=== PATIENT | male | born 1955 | race Caucasian/White ===

== ENCOUNTER 2022-11-15 13:42 | Outpatient (OUT) | payer MEDICARE, MEDICAID, SELFPAY ==
--- NOTE | 2022-11-15 13:53 | XR_ITS ---
The [address] [address] Patient Name: JESUSITA ERICKSON MRN: [id number] date: 1955 Sex: M Assigned Patient Location: [facility] Current Patient Location: [facility] Accession/Order Number: [id number] Exam Date: 11/15/2022 14:10 Report Date: 11/15/2022 15:47 At the request of: RAMSEY ARENAS Procedure: XR ribs LT min 3V w CXR1V EXAM: XR ribs LT min 3V w CXR1V HISTORY: Fall COMPARISON: 09/11/2021 TECHNIQUE: Four views of the left ribs. FINDINGS: No rib fracture indentified. The lungs are clear. Cervical fusion hardware is noted in the lower cervical spine. XR/XR ribs LT min 3V w CXR1V IMPRESSION: 1. No acute rib fracture identified. Electronically authenticated by: SHANNA YOUNGBLOOD Date: 11/15/2022 15:47
--- NOTE | 2022-11-15 13:53 | XR_ITS ---
The [address] [address] Patient Name: JESUSITA ERICKSON MRN: [id number] date: 1955 Sex: M Assigned Patient Location: RAD Current Patient Location: RAD Accession/Order Number: [id number] Exam Date: 11/15/2022 14:10 Report Date: 11/15/2022 14:49 At the request of: RAMSEY ARENAS Procedure: XR knee LT 4V PROCEDURE: XR knee LT 4V DATE: 11/15/2022 1:10 PM CDT COMPARISONS: None CLINICAL INDICATION: Fall FINDINGS: There is no evidence of fractures or other acute osseous abnormalities. There is medial fixation plate fixed by screws of the proximal tibia additional horizontal screws are also noted of the most proximal aspect of the tibia There is diffuse bone demineralization. There is moderate tricompartmental spurring. There is marked narrowing of the medial femoral tibial joint space compartment. It appears there is slight irregularity at this joint space There is no evidence of left knee joint effusion. XR/XR knee LT 4V IMPRESSION: Prominent left knee degenerative changes especially the medial compartment Bone demineralization Old postop changes proximal tibia No evidence of left knee joint effusion.. Electronically authenticated by: ILEANA REED Date: 11/15/2022 14:49
== END 2022-11-15 13:43 | disposition home or self-care (01) ==
PROVIDERS: PCP Family Medicine; Visit Provider Family Medicine
DX: M25.562 Pain in left knee (principal); R07.81 Pleurodynia
CPT/HCPCS: 71101; 73564

== ENCOUNTER 2023-07-24 21:22 | Emergency (ER) | payer MEDICARE, MEDICAID, SELFPAY ==
[2023-07-24] VITALS (24 sets, daily range): BP systolic 70–116; BP diastolic 44–94; PULSE 81–92; TEMP 36.4–36.6; O2SAT 42–100; BMI 28.6
--- NOTE | 2023-07-24 21:33 | ED.GENADUL1 ---
HPI HPI - General Adult General Chief complaint: Weakness Stated complaint: SYNCOPY Time Seen by Provider: 07/24/23 21:25 Source: patient Mode of arrival: ambulance Limitations: no limitations History of Present Illness HPI narrative: past history of COPD, DM, CAD s/p stent placement. States he was at [facility] past 1-2 months for GI bleed. Required blood transfusion. Described EGD with findings of an ulcer. states he was placed on medication for his stomach. Did have a follow up appointment scheduled but missed the appointment. Now presents ill again for past 2-3 days with chest pain, near syncope and states today black stools again. Also feels short of breath. Also has abdominal pain Related Data Home Medications ?Medication ?Instructions ?Recorded ?Confirmed albuterol sulfate 90 mcg/actuation 2 inh inhalation Q4H PRN shortness 07/24/23 07/24/23 aerosol inhaler of breath or wheezing amlodipine 5 mg tablet 5 mg PO DAILY 07/24/23 07/24/23 atorvastatin 40 mg tablet 40 mg PO DAILY 07/24/23 07/24/23 carvedilol 25 mg tablet 25 mg PO DAILY 07/24/23 07/24/23 gabapentin 300 mg capsule 300 mg PO BEDTIME 07/24/23 07/24/23 hydroxyzine HCl 10 mg tablet 10 mg PO Q6H PRN anxiety 07/24/23 07/24/23 insulin aspart U-100 100 unit/mL 1 sliding scale dose subcut ACHS 07/24/23 07/24/23 (3 mL) subcutaneous pen insulin detemir U-100 100 unit/mL 50 unit subcut .MORNING 07/24/23 07/24/23 (3 mL) subcutaneous pen (Levemir FlexPen) insulin detemir U-100 100 unit/mL 30 unit subcut QPM 07/24/23 07/24/23 (3 mL) subcutaneous pen (Levemir FlexTouch U-100 Insulin) losartan 100 mg tablet 100 mg PO DAILY 07/24/23 07/24/23 metformin 500 mg tablet 500 mg PO DAILY 07/24/23 07/24/23 omeprazole 40 mg capsule,delayed 40 mg PO DAILY 07/24/23 07/24/23 release tizanidine 4 mg tablet 4 mg PO Q12H 07/24/23 07/24/23 Allergies Allergy/AdvReac Type Severity Reaction Status Date / Time hydrocodone Allergy Unknown Verified 07/24/23 21:25 Opioid HPI Opioid Management Most Recent Opioid Data: Last Pain Scale 7 07/24/23 21:53 Review of Systems ROS Status of ROS 10 or more systems reviewed and unremarkable except as noted in history and below Exam Constitutional Vital Signs, click to edit/add: Last Vital Signs Temp 97.7 F 07/25/23 00:15 Pulse 90 07/25/23 00:31 Resp 19 07/25/23 00:31 BP 116/74 07/25/23 00:31 Pulse Ox 96 07/25/23 00:31 O2 Del Method Room Air 07/24/23 22:08 Common normals: no apparent distress, average body habitus, oriented x3, no limitations, healthy appearing, alert and well nourished HENMT Common normals: normocephalic and head/scalp atraumatic Eye Common normals: PERRL, EOMs intact bilaterally and conjunctivae normal Respiratory Common normals: normal respiratory effort, no retractions and no use of accessory muscles Cardio Common normals: regular rate, regular rhythm, S1 normal heart sound and S2 normal heart sound GI Common normals: Normal to inspection, nondistended, normoactive bowel sounds present and soft to palpation Other: RLQ tenderness Extremity Common normals: normal to inspection Neuro Common normals: oriented x3, CN's II-XII intact bilaterally, moves all extremities, no focal motor deficits and no sensory deficits noted Psych Appearance: grossly normal Course Vital Signs Vital signs: Vital Signs Temperature 98 F 07/24/23 21:25 Pulse Rate 89 07/24/23 21:25 Respiratory Rate 28 H 07/24/23 21:25 Blood Pressure 90/44 L 07/24/23 21:25 Pulse Oximetry 100 07/24/23 21:25 Oxygen Delivery Method Room Air 07/24/23 21:25 Temperature 97.7 F 07/25/23 00:15 Pulse Rate 90 07/25/23 00:31 Respiratory Rate 19 07/25/23 00:31 Blood Pressure 116/74 07/25/23 00:31 Pulse Oximetry 96 07/25/23 00:31 Oxygen Delivery Method Room Air 07/24/23 22:08 Medical Decision Making [facility] Narrative Medical decision making narrative: patient presents with GI bleed manifested by tarry stools. Hgb 5.4.. after arrival his bP decreased to 75 systolic. complaint of chest pain and shortness of breath. Near syncope at home. BP improved after hydration. PRBC ordered x2. Also given Protonix IVP. BP improved to 110 systolic and he is feeling better. Discussed with GI Dr Nassar at [facility] and patient accepted in transfer. Also discuses with [facility] Lab Data Labs: Lab Results 07/24/23 07/24/23 07/24/23 Range/Units 21:30 21:49 22:16 WBC 5.7 (4.0-11.0) 10^3/uL RBC 2.19 L (4.70-6.10) 10^6/uL Hgb 5.4 L* (14.0-18.0) g/dL Hct 18.4 L* (42.0-54.0) % MCV 84.0 (80.0-94.0) fL MCH 24.7 L (25.9-34.0) pg MCHC 29.3 L (29.9-35.2) g/dL RDW 18.8 H (11.0-15.0) % Plt Count 118 L (150-450) 10^3/uL MPV 10.1 (9.5-13.5) fL Neut % (Auto) 29.8 L (43.0-75.0) % Lymph % (Auto) 42.1 (20.5-60.0) % [place] % (Auto) 23.3 H (1.7-12.0) % Eos % (Auto) 4.2 (0.9-7.0) % Baso % (Auto) 0.3 (0.2-2.0) % Neut # (Auto) 1.7 (1.4-6.5) 10^3/uL Lymph # (Auto) 2.4 (1.2-3.8) 10^3/uL [place] # (Auto) 1.3 H (0.3-0.8) 10^3/uL Eos # (Auto) 0.2 (0.0-0.7) 10^3/uL Baso # (Auto) 0.0 (0.0-0.1) 10^3/uL Abs Immat Gran (auto) 0.02 (0.00-0.03) 10^3/uL Imm/Tot Granulo (auto) 0.3 (0.0-0.5) % Sodium 133 L (136-145) mmol/L Potassium 4.4 (3.5-5.1) mmol/L Chloride 103 (98-107) mmol/L Carbon Dioxide 21.2 (21.0-32.0) mmol/L Anion Gap 13.2 BUN 26.0 H (7.0-18.0) mg/dL Creatinine 1.62 H (0.70-1.30) mg/dL Est GFR ( Amer) 52 L (>=60) Est GFR (Non-Af Amer) 43 L (>=60) BUN/Creatinine Ratio 16.0 Glucose 313 H (74-106) mg/dL Calcium 7.9 L (8.5-10.1) mg/dL Total Bilirubin 0.3 (0.2-1.0) mg/dL AST 32 (15-37) U/L ALT 26 (16-63) U/L Alkaline Phosphatase 73 (46-116) U/L Troponin I High Sens 37.5 (4.0-76.1) pg/mL Total Protein 6.6 (6.4-8.2) g/dL Albumin 2.3 L (3.4-5.0) g/dL Globulin 4.3 g/dL Albumin/Globulin Ratio 0.5 Lipase 118.0 H (16.0-77.0) U/L POC Glucose 421 H (74-106) mg/dL Blood Type A Negative Antibody Screen Negative Crossmatch See Detail 07/24/23 Range/Units 23:59 WBC (4.0-11.0) 10^3/uL RBC (4.70-6.10) 10^6/uL Hgb (14.0-18.0) g/dL Hct (42.0-54.0) % MCV (80.0-94.0) fL MCH (25.9-34.0) pg MCHC (29.9-35.2) g/dL RDW (11.0-15.0) % Plt Count (150-450) 10^3/uL MPV (9.5-13.5) fL Neut % (Auto) (43.0-75.0) % Lymph % (Auto) (20.5-60.0) % [place] % (Auto) (1.7-12.0) % Eos % (Auto) (0.9-7.0) % Baso % (Auto) (0.2-2.0) % Neut # (Auto) (1.4-6.5) 10^3/uL Lymph # (Auto) (1.2-3.8) 10^3/uL [place] # (Auto) (0.3-0.8) 10^3/uL Eos # (Auto) (0.0-0.7) 10^3/uL Baso # (Auto) (0.0-0.1) 10^3/uL Abs Immat Gran (auto) (0.00-0.03) 10^3/uL Imm/Tot Granulo (auto) (0.0-0.5) % Sodium (136-145) mmol/L Potassium (3.5-5.1) mmol/L Chloride (98-107) mmol/L Carbon Dioxide (21.0-32.0) mmol/L Anion Gap BUN (7.0-18.0) mg/dL Creatinine (0.70-1.30) mg/dL Est GFR ( Amer) (>=60) Est GFR (Non-Af Amer) (>=60) BUN/Creatinine Ratio Glucose (74-106) mg/dL Calcium (8.5-10.1) mg/dL Total Bilirubin (0.2-1.0) mg/dL AST (15-37) U/L ALT (16-63) U/L Alkaline Phosphatase (46-116) U/L Troponin I High Sens (4.0-76.1) pg/mL Total Protein (6.4-8.2) g/dL Albumin (3.4-5.0) g/dL Globulin g/dL Albumin/Globulin Ratio Lipase (16.0-77.0) U/L POC Glucose 294 H (74-106) mg/dL Blood Type Antibody Screen Crossmatch Discharge Plan Discharge Chief Complaint: Weakness Clinical Impression: Acute hypotension, Acute GI bleeding Patient Disposition: er [facility] Discharge Location: [facility] Prescriptions / Home Meds: No Action amlodipine 5 mg tablet 5 mg PO DAILY albuterol sulfate 90 mcg/actuation HFA aerosol inhaler 2 inh INHALATION Q4H PRN (Reason: shortness of breath or wheezing) atorvastatin 40 mg tablet 40 mg PO DAILY carvedilol 25 mg tablet 25 mg PO DAILY gabapentin 300 mg capsule 300 mg PO BEDTIME hydroxyzine HCl 10 mg tablet 10 mg PO Q6H PRN (Reason: anxiety) Levemir FlexPen 100 unit/mL (3 mL) insulin pen 50 unit SUBCUT .MORNING Levemir FlexTouch U100 Insulin 100 unit/mL (3 mL) insulin pen 30 unit subcut QPM losartan 100 mg tablet 100 mg PO DAILY metformin 500 mg tablet 500 mg PO DAILY insulin aspart U-100 100 unit/mL (3 mL) insulin pen 1 sliding scale dose SUBCUT ACHS omeprazole 40 mg capsule,delayed release(DR/EC) 40 mg PO DAILY tizanidine 4 mg tablet 4 mg PO Q12H Print Language: Citizen Of [place] Referrals: RAMSEY ARENAS [Primary Care Provider] - 1 week
--- NOTE | 2023-07-24 21:37 | XR_ITS ---
The [address] [address] Patient Name: JESUSITA ERICKSON MRN: [id number] date: 1955 Sex: M Assigned Patient Location: ER Current Patient Location: ER Accession/Order Number: [id number] Exam Date: 07/24/2023 22:35 Report Date: 07/24/2023 23:31 At the request of: MARGE HICKS Procedure: XR chest 1V XR chest 1V 07/24/2023 9:35 PM CDT: History: chest pain Comparison: None. Technique: 1 view chest Findings: The cardiomediastinal silhouette is normal. The lungs are clear without infiltrate, effusion, or pneumothorax. The bones are intact. XR/XR chest 1V Impression: No acute cardiopulmonary process. Electronically authenticated by: GRIS SERNA Date: 07/24/2023 23:31
--- NOTE | 2023-07-24 21:37 | CT_ITS ---
The [address] [address] Patient Name: JESUSITA ERICKSON MRN: [id number] date: 1955 Sex: M Assigned Patient Location: ER Current Patient Location: Accession/Order Number: [id number] Exam Date: 07/24/2023 22:35 Report Date: 07/24/2023 23:20 At the request of: MARGE HICKS Procedure: CT abdomen pelvis w con EXAM: CT abdomen pelvis w con CLINICAL INDICATION: pain COMPARISON: None . TECHNIQUE: After the injection of intravenous nonionic iodinated contrast, axial CT of the abdomen, and pelvis was performed from the top of the hemidiaphragms to the inferior osseous pelvis. 2D reformats were obtained. Automatic exposure control radiation dose reduction technology was utilized. FINDINGS: Visualized portion of the lung bases are unremarkable. Bilateral hypoattenuating renal lesions, some which are compatible with simple cysts and others which are too small to accurately characterize, and for which no imaging follow-up is recommended. The liver, spleen, adrenal glands and pancreas are within normal limits. Gallbladder contains a tiny calcified stone and demonstrates mild pericholecystic fluid. No abdominal aortic aneurysm. Evaluation within the pelvis is limited due to streak artifact from the patient's bilateral hip prostheses. Within these limitations: No enlarged lymph nodes, free fluid, or free air. Diverticulosis coli without evidence for diverticulitis. The bowel is without evidence of obstruction or adjacent inflammatory changes. Bladder unremarkable. Grossly no suspicious osseous lesions are identified. CT/CT abdomen pelvis w con IMPRESSION: 1. Cholelithiasis and mild pericholecystic fluid. Findings are equivocal for acute cholecystitis in the appropriate clinical context. Consider further evaluation with dedicated abdominal ultrasound as clinically indicated. Electronically authenticated by: DAHLIA RIOJAS Date: 07/24/2023 23:20
--- NOTE | 2023-07-24 21:37 | ECG_ITS ---
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
[2023-07-24 21:40] LABS: Glucometer 421 mg/dL (74-106)
[2023-07-24] MEDS: MORPHINE SULFATE 4 MG/ML VIAL IV (21:53)
[2023-07-24 21:55] LABS: Basophils Percent Auto 0.3 % (0.2-2.0); Eosinophils Absolute Auto 0.2 10^3/uL (0.0-0.7); Eosinophils Percent Auto 4.2 % (0.9-7.0); Immature Granulocytes Abs Auto 0.02 10^3/uL (0.00-0.03); Immature Granulocytes Pct Auto 0.3 % (0.0-0.5); Lymphocytes Absolute Auto 2.4 10^3/uL (1.2-3.8); Lymphocytes Percent Auto 42.1 % (20.5-60.0); Mean Corpuscular HGB Conc 29.3 g/dL (29.9-35.2); Mean Corpuscular Hemoglobin 24.7 pg (25.9-34.0); Mean Platelet Volume 10.1 fL (9.5-13.5); Monocytes Absolute Auto 1.3 10^3/uL (0.3-0.8); Monocytes Percent Auto 23.3 % (1.7-12.0); Neutrophils Absolute Auto 1.7 10^3/uL (1.4-6.5); Neutrophils Percent Auto 29.8 % (43.0-75.0); Platelet Count 118 10^3/uL (150-450); Red Blood Count 2.19 10^6/uL (4.70-6.10); Red Cell Distribution Width 18.8 % (11.0-15.0); White Blood Count 5.7 10^3/uL (4.0-11.0)
[2023-07-24 22:02] LABS: Hematocrit 18.4 % (42.0-54.0); Hemoglobin 5.4 g/dL (14.0-18.0)
[2023-07-24 22:13] LABS: Alanine Aminotransferase 26 U/L (16-63); Albumin Globulin Ratio 0.5; Albumin Level 2.3 g/dL (3.4-5.0); Alkaline Phosphatase 73 U/L (46-116); Anion Gap 13.2; Aspartate Amino Transferase 32 U/L (15-37); Bilirubin Total 0.3 mg/dL (0.2-1.0); Calcium 7.9 mg/dL (8.5-10.1); Carbon Dioxide 21.2 mmol/L (21.0-32.0); Chloride 103 mmol/L (98-107); Estimated GFR (African America 52 (>=60); Estimated GFR (Non-African Ame 43 (>=60); Globulin 4.3 g/dL; Glucose 313 mg/dL (74-106); Potassium 4.4 mmol/L (3.5-5.1); Sodium 133 mmol/L (136-145); Total Protein 6.6 g/dL (6.4-8.2)
[2023-07-24 22:15] LABS: Troponin I High Sensitivity 37.5 pg/mL (4.0-76.1)
[2023-07-24] MEDS: 0.9 % SODIUM CHLORIDE 1,000 ML 999 ML IV ×2 (22:25→23:45)
[2023-07-24] MEDS: ONDANSETRON PF 4 MG/2 ML VIAL IV (22:26)
[2023-07-25] VITALS (15 sets, daily range): BP systolic 79–121; BP diastolic 44–82; PULSE 83–104; TEMP 36.5–37; O2SAT 93–98
[2023-07-25] MEDS: 0.9 % SODIUM CHLORIDE 500 ML IV
[2023-07-25 00:10] LABS: Glucometer 294 mg/dL (74-106)
[2023-07-25] MEDS: PANTOPRAZOLE SODIUM 40 MG VIAL IV (01:23)
== END 2023-07-25 02:50 | disposition short-term general hospital (02) ==
PROVIDERS: Emergency Provider Internal Medicine; PCP Family Medicine
DX: K92.2 Gastrointestinal hemorrhage, unspecified (principal); I95.9 Hypotension, unspecified; J44.9 Chronic obstructive pulmonary disease, unspecified; E11.9 Type 2 diabetes mellitus without complications; I25.10 Atherosclerotic heart disease of native coronary artery without angina pectoris; Z95.5 Presence of coronary angioplasty implant and graft; R55 Syncope and collapse; R06.02 Shortness of breath; Z79.4 Long term (current) use of insulin; Z79.899 Other long term (current) drug therapy; Z79.84 Long term (current) use of oral hypoglycemic drugs; D64.9 Anemia, unspecified
CPT/HCPCS: 36415; 36430; 71045; 74177; 80053; 83690; 84484; 85025; 86850; 86900; 86901; 93005; 96361; 96374; 96375; 99285; P9016; Q9966

== ENCOUNTER 2023-09-23 13:15 | Emergency (ER) | payer MEDICARE, MEDICAID, SELFPAY ==
[2023-09-23] VITALS (24 sets, daily range): BP systolic 99–128; BP diastolic 65–88; PULSE 66–78; TEMP 37.1; O2SAT 94–99; BMI 29.3
--- NOTE | 2023-09-23 13:32 | ECG_ITS ---
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
[2023-09-23 13:40] LABS: Basophils Percent Auto 0.7 % (0.2-2.0); Eosinophils Absolute Auto 0.3 10^3/uL (0.0-0.7); Eosinophils Percent Auto 6.4 % (0.9-7.0); Hemoglobin 12.4 g/dL (14.0-18.0); Immature Granulocytes Abs Auto 0.01 10^3/uL (0.00-0.03); Immature Granulocytes Pct Auto 0.2 % (0.0-0.5); Lymphocytes Absolute Auto 1.6 10^3/uL (1.2-3.8); Lymphocytes Percent Auto 39.6 % (20.5-60.0); Mean Corpuscular HGB Conc 31.8 g/dL (29.9-35.2); Mean Corpuscular Hemoglobin 30.2 pg (25.9-34.0); Mean Corpuscular Volume 95.1 fL (80.0-94.0); Mean Platelet Volume 10.6 fL (9.5-13.5); Monocytes Absolute Auto 0.8 10^3/uL (0.3-0.8); Monocytes Percent Auto 19.6 % (1.7-12.0); Neutrophils Absolute Auto 1.4 10^3/uL (1.4-6.5); Neutrophils Percent Auto 33.5 % (43.0-75.0); Platelet Count 119 10^3/uL (150-450)
[2023-09-23] MEDS: 0.9 % SODIUM CHLORIDE 1,000 ML 1000 ML IV (13:43)
--- NOTE | 2023-09-23 13:47 | ED_ITS ---
HPI - GI Bleed General Chief complaint: GI Bleed Stated complaint: BLOOD IN STOOL Time Seen by Provider: 09/23/23 13:26 Source: patient Mode of arrival: ambulance History of Present Illness HPI Narrative: Patient have history of multiple presentation with lower GI bleed requiring transfusion, the patient is coming to us today with 5 days history of black stool, associated with some chest pain today he is denying any dizziness nausea vomiting or any other concerns, and the chest pain is not related to exertion The patient also denies any fever or chills and he is complaining of right-sided lower abdominal pain The patient last ate this morning and he have no nausea or vomiting He mentioned that he usually have this right lower quadrant pain associated with his bleeding and that he mentioned that multiple workup before did not conclude what is the reason for the bleeding The patient pain in the right side of the abdomen upper and lower and no association with pain and no association with nausea or vomiting Related Data Home Medications ?Medication ?Instructions ?Recorded ?Confirmed albuterol sulfate 90 mcg/actuation 2 inh inhalation Q4H PRN shortness 07/24/23 09/23/23 aerosol inhaler of breath or wheezing amlodipine 5 mg tablet 5 mg PO DAILY 07/24/23 09/23/23 atorvastatin 40 mg tablet 40 mg PO DAILY 07/24/23 09/23/23 carvedilol 25 mg tablet 25 mg PO Q12H 07/24/23 09/23/23 gabapentin 300 mg capsule 300 mg PO BEDTIME 07/24/23 09/23/23 hydroxyzine HCl 10 mg tablet 10 mg PO Q6H PRN anxiety 07/24/23 09/23/23 insulin detemir U-100 100 unit/mL 50 unit subcut .MORNING 07/24/23 09/23/23 (3 mL) subcutaneous pen (Levemir FlexPen) insulin detemir U-100 100 unit/mL 30 unit subcut QPM 07/24/23 09/23/23 (3 mL) subcutaneous pen (Levemir FlexTouch U-100 Insulin) metformin 500 mg tablet 500 mg PO DAILY 07/24/23 09/23/23 tizanidine 4 mg tablet 4 mg PO Q12H 07/24/23 09/23/23 ergocalciferol (vitamin D2) 1,250 50,000 unit PO .every week 09/23/23 09/23/23 mcg (50,000 unit) capsule ferrous sulfate 325 mg (65 mg 325 mg PO DAILY 09/23/23 09/23/23 iron) tablet (Feosol) furosemide 40 mg tablet (Lasix) 20 mg PO DAILY 09/23/23 09/23/23 ondansetron 4 mg disintegrating 4 mg PO Q8H PRN nausea and vomiting 09/23/23 09/23/23 tablet oxycodone-acetaminophen 5 mg-325 1 tab PO Q6H PRN pain 09/23/23 09/23/23 mg tablet (Percocet) pantoprazole 40 mg tablet,delayed 40 mg PO Q12H 09/23/23 09/23/23 release (Protonix) sennosides 8.6 mg-docusate sodium 1 tab-cap PO BID 09/23/23 09/23/23 50 mg tablet (Senexon-S) Allergies Allergy/AdvReac Type Severity Reaction Status Date / Time hydrocodone Allergy Unknown Verified 07/24/23 21:25 Review of Systems ROS Status of ROS 10 or more systems reviewed and unremark able except as noted in history and below Exam Narrative Exam Narrative: Nurses notes and vital signs reviewed and patient is not hypoxic. General: Well-appearing and in no apparent distress. Skin: Warm, dry, no pallor noted. No rash. Head: Normocephalic, atraumatic. Neck: Supple, non-tender. Eye: Pupils are equal, round and EOMI. No scleral icterus. Ears, Nose, Mouth, and Throat: TM are clear, no nasal mucosal hypertrophy. Oral mucosa is moist, no posterior oropharynx erythema, uvula is mid-line Cardiovascular: Regular Rate and Rhythm without murmur, gallop or rub. Respiratory: No accessory muscle use or respiratory distress. Lungs are clear to auscultation, no wheezing, rales or rhonchi Chest Wall: no tenderness Back: No midline thoracic or lumbar vertebral tenderness. No CVA tenderness Musculoskeletal: normal ROM, no calf or popliteal tenderness, no lower extremity edema/swelling GI: Abdomen is soft, non-distended. Normal bowel sounds. No masses appreciated. Rectal exam shows no active bleeding or any hemorrhoid Right-sided tenderness on palpation of the right upper and lower quadrant of the abdomen mostly on superficial palpation, Neurological: A&O x4. No cranial nerve dysfunction observed. No truncal ataxia. Moves all extremities. Sensation intact. Psychiatric: Cooperative and interactive. Normal mood and affect. Constitutional Vital Signs, click to edit/add: Last Vital Signs Temp 98.8 F 09/23/23 13:17 Pulse 77 09/23/23 16:20 Resp 19 09/23/23 16:20 BP 107/67 09/23/23 16:00 Pulse Ox 94 L 09/23/23 16:10 O2 Del Method Room Air 09/23/23 13:17 Course Vital Signs Vital signs: Vital Signs Temperature 98.8 F 09/23/23 13:17 Pulse Rate 71 09/23/23 13:17 Respiratory Rate 18 09/23/23 13:17 Blood Pressure 106/73 09/23/23 13:17 Pulse Oximetry 97 09/23/23 13:17 Oxygen Delivery Method Room Air 09/23/23 13:17 Temperature 98.8 F 09/23/23 13:17 Pulse Rate 77 09/23/23 16:20 Respiratory Rate 19 09/23/23 16:20 Blood Pressure 107/67 09/23/23 16:00 Pulse Oximetry 94 L 09/23/23 16:10 Oxygen Delivery Method Room Air 09/23/23 13:17 MDM - GI Bleed MDM Narrative Medical decision making narrative: EKG showing sinus rhythm with a heart rate of 73 with left bundle miguel block that was seen on previous EKGs The patient last time he was here he had hemoglobin of 5 ,today hemoglobin is 12 repeated after 2 hours his hemoglobin was 11.7 and there was no apparent active bleeding in the ER and the patient was not orthostatic The patient EKG did not show any acute pathology troponin repeated twice showed no acute pathology as well The patient chemistry was not showing acute pathology there was no leukocytosis and his CBC and his CAT scan of the abdomen obtained because the patient pain showing possible acute cholecystitis although the patient does not have any leukocytosis and right now in the facility there is no durability technician to have a ultrasound done I did speak with and he mentioned that right now the patient just cannot have an ultrasound which was scheduled for Monday at 8 AM as outpatient and then he will follow-up with him Monday09/26/2023 The patient right now does not have any complaint he have a good appetite requesting food He will be sent back to the nursing facility and he will just monitor himself regarding the pain and the bleeding The patient is to follow up with primary care physician in next 2-3 days or to return to the emergency department should any of the signs or symptoms worsen or new symptoms develop. The patient agrees with the following Diagnosis and Treatment plan and the patient will be discharged home. Lab Data Labs: Lab Results 09/23/23 09/23/23 Range/Units 13:25 15:24 WBC 4.0 (4.0-11.0) 10^3/uL RBC 4.10 L (4.70-6.10) 10^6/uL Hgb 12.4 L 11.6 L (14.0-18.0) g/dL Hct 39.0 L (42.0-54.0) % MCV 95.1 H (80.0-94.0) fL MCH 30.2 (25.9-34.0) pg MCHC 31.8 (29.9-35.2) g/dL RDW 18.0 H (11.0-15.0) % Plt Count 119 L (150-450) 10^3/uL MPV 10.6 (9.5-13.5) fL Neut % (Auto) 33.5 L (43.0-75.0) % Lymph % (Auto) 39.6 (20.5-60.0) % [place] % (Auto) 19.6 H (1.7-12.0) % Eos % (Auto) 6.4 (0.9-7.0) % Baso % (Auto) 0.7 (0.2-2.0) % Neut # (Auto) 1.4 (1.4-6.5) 10^3/uL Lymph # (Auto) 1.6 (1.2-3.8) 10^3/uL [place] # (Auto) 0.8 (0.3-0.8) 10^3/uL Eos # (Auto) 0.3 (0.0-0.7) 10^3/uL Baso # (Auto) 0.0 (0.0-0.1) 10^3/uL Abs Immat Gran (auto) 0.01 (0.00-0.03) 10^3/uL Imm/Tot Granulo (auto) 0.2 (0.0-0.5) % PT 11.7 H (9.0-11.6) sec INR 1.12 Sodium 139 (136-145) mmol/L Potassium 3.7 (3.5-5.1) mmol/L Chloride 104 (98-107) mmol/L Carbon Dioxide 26.7 (21.0-32.0) mmol/L Anion Gap 12.0 BUN 19.0 H (7.0-18.0) mg/dL Creatinine 1.24 (0.70-1.30) mg/dL Est GFR ( Amer) >60 (>=60) Est GFR (Non-Af Amer) 58 L (>=60) BUN/Creatinine Ratio 15.3 Glucose 91 (74-106) mg/dL Calcium 8.9 (8.5-10.1) mg/dL Total Bilirubin 0.4 (0.2-1.0) mg/dL AST 92 H (15-37) U/L ALT 61 (16-63) U/L Alkaline Phosphatase 156 H (46-116) U/L Troponin I High Sens 27.8 24.9 (4.0-76.1) pg/mL Total Protein 9.0 H (6.4-8.2) g/dL Albumin 3.0 L (3.4-5.0) g/dL Globulin 6.0 g/dL Albumin/Globulin Ratio 0.5 Blood Type A Negative Antibody Screen Negative Discharge Plan Discharge Stand Alone Forms: Portal Instructions Chief Complaint: GI Bleed Clinical Impression: History of blood loss Abdominal pain Qualifiers: Abdominal location: unspecified location Qualified Code(s): R10.9 - Unspecified abdominal pain Patient Disposition: Home, Self-Care Time of Disposition Decision: 16:20 Condition: Good Prescriptions / Home Meds: No Action amlodipine 5 mg tablet 5 mg PO DAILY albuterol sulfate 90 mcg/actuation HFA aerosol inhaler 2 inh INHALATION Q4H PRN (Reason: shortness of breath or wheezing) atorvastatin 40 mg tablet 40 mg PO DAILY carvedilol 25 mg tablet 25 mg PO Q12H gabapentin 300 mg capsule 300 mg PO BEDTIME hydroxyzine HCl 10 mg tablet 10 mg PO Q6H PRN (Reason: anxiety) Levemir FlexPen 100 unit/mL (3 mL) insulin pen 50 unit SUBCUT .MORNING Levemir FlexTouch U100 Insulin 100 unit/mL (3 mL) insulin pen 30 unit subcut QPM metformin 500 mg tablet 500 mg PO DAILY tizanidine 4 mg tablet 4 mg PO Q12H ergocalciferol (vitamin D2) 1,250 mcg (50,000 unit) capsule 50,000 unit PO .every week Patient Comments: monday ferrous sulfate [Feosol] 325 mg (65 mg iron) tablet 325 mg PO DAILY furosemide [Lasix] 40 mg tablet 20 mg PO DAILY ondansetron 4 mg tablet,disintegrating 4 mg PO Q8H PRN (Reason: nausea and vomiting) oxycodone-acetaminophen [Percocet] 5-325 mg tablet 1 tab PO Q6H PRN (Reason: pain) pantoprazole [Protonix] 40 mg tablet,delayed release (DR/EC) 40 mg PO Q12H sennosides-docusate sodium [Senexon-S] 8.6-50 mg tablet 1 tab-cap PO BID Print Language: Salvad[place] Instructions: Abdominal Pain (ED) Additional Instructions: Pt has appt for RUQ U/S with [facility] radiology 09/25/23 0800. No eating morning of exam, can take medication with sips of water. Call and make appt with Dr Tesfaye general surgeon can see Monday if U/S is completed on Monday09/25/23. Referrals: Augustine Tesfaye DO [Physician] - 09/26/23 (please follow up with Dr Tesfaye monday after having US done ) RAMSEY ARENAS [Primary Care Provider] - 1 week
--- NOTE | 2023-09-23 13:48 | CT_ITS ---
The [address] [address] Patient Name: JESUSITA ERICKSON MRN: [id number] date: 1955 Sex: M Assigned Patient Location: ER Current Patient Location: Accession/Order Number: [id number] Exam Date: 09/23/2023 14:18 Report Date: 09/23/2023 15:52 At the request of: REYNOLD MARTINEZ Procedure: CT abdomen pelvis wo con EXAM: CT abdomen pelvis wo con TECHNIQUE: Axial CT images were obtained of the abdomen and pelvis without intravenous contrast. Sagittal and coronal reformatted images were also obtained. Dose reduction techniques were achieved by using automated exposure control and/or adjustment of mA and/or kV according to patient size and/or use of iterative reconstruction technique. HISTORY: rt lower pain COMPARISON: 07/24/2023 FINDINGS: Lower chest: The lower lungs are clear. Liver: The liver is homogeneous with normal contours and normal size. Gallbladder: Tiny calcific stone of the gallbladder. Pericholecystic edema is noted. No biliary dilatation. Pancreas: The pancreas is homogeneous without evidence for mass lesion or inflammation. Spleen: The spleen is unremarkable without evidence for mass lesion. Adrenal glands: The adrenal glands are unremarkable Kidneys and bladder: Multiple bilateral benign cortical renal cysts. No hydronephrosis. The ureters demonstrate normal caliber. The urinary bladder is unremarkable. GI Tract: Stomach is unremarkable. Visualized small bowel is unremarkable without evidence for obstruction or active inflammation. No CT evidence for acute appendicitis.The visualized portion of the large bowel is unremarkable. Reproductive: Unremarkable Lymph nodes: Chronic mild periceliac and periportal lymph node enlargement. Vascular: Borderline mild dilatation of the infrarenal abdominal aorta measuring 26 mm AP. Peritoneum: No free intraperitoneal air or fluid. No acute inflammation. Abdominal wall: Left hip arthroplasty. Post surgical changes of the right femoral neck. CT/CT abdomen pelvis wo con IMPRESSION: Findings suspicious for acute cholecystitis in the appropriate clinical setting. Consider further evaluation with right upper quadrant ultrasound if clinically necessary. Electronically authenticated by: NATHALY JUAN Date: 09/23/2023 15:52
[2023-09-23 13:52] LABS: INR 1.12; Prothrombin Time 11.7 sec (9.0-11.6)
[2023-09-23 14:03] LABS: Alanine Aminotransferase 61 U/L (16-63); Albumin Globulin Ratio 0.5; Alkaline Phosphatase 156 U/L (46-116); Aspartate Amino Transferase 92 U/L (15-37); BUN Creatinine Ratio 15.3; Bilirubin Total 0.4 mg/dL (0.2-1.0); Calcium 8.9 mg/dL (8.5-10.1); Carbon Dioxide 26.7 mmol/L (21.0-32.0); Chloride 104 mmol/L (98-107); Estimated GFR (African America >60 (>=60); Estimated GFR (Non-African Ame 58 (>=60); Glucose 91 mg/dL (74-106); Potassium 3.7 mmol/L (3.5-5.1); Sodium 139 mmol/L (136-145); Troponin I High Sensitivity 27.8 pg/mL (4.0-76.1)
[2023-09-23] MEDS: MORPHINE SULFATE 2 MG/ML SYRINGE IV (14:26)
[2023-09-23 15:31] LABS: Hemoglobin 11.6 g/dL (14.0-18.0)
[2023-09-23 16:01] LABS: Troponin I High Sensitivity 24.9 pg/mL (4.0-76.1)
== END 2023-09-23 16:59 | disposition home or self-care (01) ==
PROVIDERS: Emergency Provider Emergency Medicine; PCP Family Medicine
DX: K92.2 Gastrointestinal hemorrhage, unspecified (principal); R07.9 Chest pain, unspecified; R10.31 Right lower quadrant pain
CPT/HCPCS: 36415; 36416; 74176; 80053; 84484; 85018; 85025; 85610; 86850; 86900; 86901; 93005; 96374; 99285; J2270

== ENCOUNTER 2023-09-25 07:33 | Outpatient (OUT) | payer MEDICARE, MEDICAID, SELFPAY ==
--- NOTE | 2023-09-25 07:35 | US_ITS ---
[address] [address] Patient Name: JESUSITA ERICKSON MRN: [id number] date: 1955 Sex: M Assigned Patient Location: US Current Patient Location: US Accession/Order Number: [id number] Exam Date: 09/25/2023 08:05 Report Date: 09/25/2023 09:06 At the request of: REYNOLD MARTINEZ Procedure: US right upper quadrant EXAM: US right upper quadrant HISTORY: Right Upper Quadrant Pain COMPARISON: 09/23/2023 TECHNIQUE: Grayscale and color ultrasound FINDINGS: The liver is prominent in size measuring 19.5 cm in length. No focal hepatic mass. Hepatopedal flow in the main portal vein with velocity of 22 cm/s. The gallbladder wall is thickened measuring up to 1.4 cm. No pericholecystic fluid. The common bile duct measures 3.4 mm. Negative sonographic Martinez sign. The visualized pancreas is normal The right kidney is grossly normal measuring 9.7 x 5.0 x 5.7 cm US/US right upper quadrant IMPRESSION: Gallbladder wall thickening consistent with cholecystitis Electronically authenticated by: FRANCOIS CANTU Date: 09/25/2023 09:06
== END 2023-09-25 07:34 | disposition home or self-care (01) ==
LOC: US 07:33
PROVIDERS: PCP Family Medicine; Visit Provider Emergency Medicine
DX: R10.11 Right upper quadrant pain (principal); K81.9 Cholecystitis, unspecified
CPT/HCPCS: 76705